=== PATIENT | female | born 1985 | race Caucasian/White ===

== ENCOUNTER → 2024-04-21 14:57 | Outpatient (REF) | payer BC, SELFPAY | LOC: HWWDC 14:57 | PROVIDERS: ATTENDING PHYSICIAN Nurse Practitioner Family; FAMILY PHYSICIAN Nurse Practitioner Family | DX: Z12.31 Encounter for screening mammogram for malignant neoplasm of breast (principal) | CPT/HCPCS: 77063; 77067 ==

== ENCOUNTER 2024-05-27 06:25 | Day surgery (SDC) | payer BC, SELFPAY ==
[2024-05-25 13:57] VITALS: BMI 30.1
[2024-05-25 14:45] LABS: % Basophils 0.4 % (0-2); % Eosinophils 2.2 % (0-6); % Immature Granulocytes 0.1 % (0-0.5); % Monocytes 5.6 % (1.7-9.3); % Neutrophils 61.7 % (42.2-75.2); Absolute Eosinophils 0.2 10^3/uL (0-0.7); Absolute Lymphocytes 2.6 10^3/uL (1.2-3.4); Absolute Monocytes 0.5 10^3/uL (0.1-0.6); Absolute Neutrophils 5.3 10^3/uL (1.4-6.5); Hematocrit 38.2 % (37.0-47.0); Hemoglobin 13.1 g/dL (12.0-16.0); Mean Corp Hgb Conc. 34.3 g/dL (33.0-37.0); Mean Corpuscular Hgb 28.7 pg (27.0-31.0); Mean Corpuscular Volume 83.6 fL (81.0-99.0); Mean Platelet Volume 10.2 fL (7.4-10.4); Nucleated Red Blood Cells % 0 %; Platelet Count 239 10^3/uL (130-400); Red Blood Cell Count 4.57 10^6/uL (4.20-5.40); Red Cell Dist. Width 13.4 % (11.5-14.5); White Blood Cell Count 8.6 10^3/uL (4.8-10.8)
[2024-05-25 14:55] LABS: INR 1.07; PT 14.2 Sec (11.4-14.6)
[2024-05-25 14:56] LABS: APTT 34.8 Sec (23.4-35.0)
[2024-05-27 08:37] VITALS: BMI 30.1
[2024-05-27 08:40] VITALS: BP 118/72
[2024-05-27] MEDS: NORMOSOL-R/PLASMALYTE-A 1000 IV (08:51)
[2024-05-27] MEDS: TYLENOL 1000 MG PO (08:51)
[2024-05-27 10:00] VITALS: BP 102/59
[2024-05-27 10:15] VITALS: BP 103/66
[2024-05-27 10:30] VITALS: BP 111/79
[2024-05-27 10:45] VITALS: BP 113/80
== END 2024-05-27 11:05 | disposition home or self-care (01) ==
LOC: SDS 06:25
PROVIDERS: ATTENDING PHYSICIAN Obstetrics & Gynecology; FAMILY PHYSICIAN Nurse Practitioner Family
DX: D06.9 Carcinoma in situ of cervix, unspecified (principal)
CPT/HCPCS: 57522; 88305; 88307; 36415; 85025; 85610; 85730